=== PATIENT | male | born 1955 | race Caucasian/White ===

== ENCOUNTER 2024-01-20 10:13 | Outpatient (CLI) | payer MEDICARE, OTHER | END 2024-01-20 10:14 | disposition home or self-care (01) | LOC: BICRAD 10:13 | PROVIDERS: ATTEND Internal Medicine Rheumatology | DX: M05.711 Rheumatoid arthritis with rheumatoid factor of right shoulder without organ or systems involvement (principal); M05.712 Rheumatoid arthritis with rheumatoid factor of left shoulder without organ or systems involvement; M77.8 Other enthesopathies, not elsewhere classified; M25.812 Other specified joint disorders, left shoulder ==